=== PATIENT | male | born 1985 | race African-American/Black ===

== ENCOUNTER → 2017-05-30 | Outpatient (CLI) | payer OTHER ==
--- NOTE | 2017-05-30 11:32 | RADIOLOGY IMAGING REPORT ---
[place] [facility] [place] NAME: Dino Hernandez : 1985 MR: [id number] V: [id number] EXAM DATE: ORDERING PHYSICIAN: MARC FROST TECHNOLOGIST: Location[facility] [place] Patient: Dino Hernandez : 1985 Visit/Account:[id number] Date of Sevice: 05/30/2017 Chest with lateral, two views. HISTORY: Positive TB test. COMPARISON: None. The heart and mediastinum are unremarkable. Pulmonary vessels are unremarkable. The lungs are clear . The pleural surfaces are unremarkable. No pneumothorax. No lung cavities. No acute bony abnormali ties. IMPRESSION: No evidence of acute cardiopulmonary disease. No evidence of tuberculosis. Report Dictated By: Porter Shearer MD at 05/30/2017 11:25 AM Report E-Signed By: Porter Shearer MD at 05/30/2017 11:26 AM WSN:[id number]
== END ==
LOC: RAD 10:22
PROVIDERS: ATTEND Pediatrics Adolescent Medicine
DX: R76.11 Nonspecific reaction to tuberculin skin test without active tuberculosis (principal)
CPT/HCPCS: 71046